=== PATIENT | male | born 1975 | race Caucasian/White ===

== ENCOUNTER 2022-07-04 05:16 | Day surgery (SDC) | payer BC, OTHER ==
[~2022-07-04 05:16] MED LIST: Dextrose 5%-0.45% NaCl 1,000 ML IV SCH; Sodium Chloride 0.9% 10 ML Syringe FLUSH PRN; Sodium Chloride 0.9% 10 ML Syringe FLUSH SCH
[2022-07-04] MEDS ORDERED: Midazolam 1 MG/ML 2 ML SDV IV ONE ×7 (05:17→06:38)
[2022-07-04] MEDS ORDERED: fentaNYL 100 MCG/2 ML SDV IV ONE ×3 (05:17→06:32)
[2022-07-04] MEDS ORDERED: fentaNYL 100 MCG/2 ML SDV ONE (06:15)
[2022-07-04] MEDS ORDERED: Midazolam 1 MG/ML 2 ML SDV ONE (06:15)
== END 2022-07-04 08:03 | disposition home or self-care (01) ==
LOC: DL.ENDO 05:16
PROVIDERS: ATTEND Internal Medicine Gastroenterology
DX: Z12.11 Encounter for screening for malignant neoplasm of colon (principal); D12.0 Benign neoplasm of cecum; E66.09 Other obesity due to excess calories; E78.5 Hyperlipidemia, unspecified; E11.9 Type 2 diabetes mellitus without complications; Z98.890 Other specified postprocedural states; Z68.37 Body mass index [BMI] 37.0-37.9, adult
CPT/HCPCS: 45385; J2250; J3010; J7042